=== PATIENT | male | born 1970 | race Caucasian/White ===

== ENCOUNTER → 2016-12-30 | Outpatient (CLI) | payer MEDICARE ==
[2016-12-31 11:24] LABS: Lamotrigine (Lamictal) 6.1 ug/mL (2.0-15.0)
[2016-12-31 11:26] LABS: Levetiracetam (Keppra) 20.1 ug/mL (3.0-60.0)
== END ==
LOC: LABWHC1 16:55
PROVIDERS: ATTEND Psychiatry & Neurology Neurology
DX: G40.909 Epilepsy, unspecified, not intractable, without status epilepticus (principal)
CPT/HCPCS: 36415; 80175; 80177

== ENCOUNTER → 2020-05-02 | Outpatient (CLI) | payer MEDICARE ==
--- NOTE | 2020-05-02 07:58 | US ---
EXAMINATION TYPE: US abdomen complete DATE OF EXAM: 05/02/2020 COMPARISON: NONE CLINICAL HISTORY: R19.00 Abdominal Mass, R10.84 abdominal pain. Patient was unsure of what abdominal mass needed to be assessed and physician's order did not specify to assess for abdominal hernia. Poss ible midline outpouching when patient raises head forward in supine position. EXAM MEASUREMENTS: Liver Length: 15.3 cm Gallbladder Wall: 0.1 cm CBD: 0.5 cm Spleen: 10.6 cm Right Kidney: 11.0 x 7.3 x 6.1 cm Left Kidney: 11.7 x 6.0 x 5.5 cm Pancreas: hyperechoic and tail obscured by overlying bowel gas Liver: mildly heterogeneous and attenuated posteriorly Gallbladder: wnl Evidence for sonographic Conti's sign: no CBD: wnl Spleen: wnl Right Kidney: No hydronephrosis or masses seen Left Kidney: No hydronephrosis or masses seen Upper IVC: wnl Abd Aorta: wnl Midline abdominal rectus muscle appears intact with and without Valsalva Maneuver. No abdominal herni a is identified based on ultrasound IMPRESSION: 1. Normal abdomen ultrasound. 2. No suspicious hernia identified based on ultrasound
== END | disposition home or self-care (01) ==
LOC: RADUSWWP 06:53
PROVIDERS: ATTEND Family Medicine
DX: R19.00 Intra-abdominal and pelvic swelling, mass and lump, unspecified site (principal)
CPT/HCPCS: 76700